=== PATIENT | male | born 1985 | race Caucasian/White ===

== ENCOUNTER 2017-03-05 08:42 | Emergency (ER) | payer SELFPAY ==
[2017-03-05 08:54] VITALS: TEMP 98.5; BMI 24.5
[2017-03-05] MEDS ORDERED: Sodium Chloride 0.9% 1,000 ML IV STA (09:09)
--- NOTE | 2017-03-05 09:13 | ED PDOC ---
Arrival/HPI - General Chief Complaint: Back Pain Time Seen by Provider: 03/05/17 09:01 Historian: Patient - History of Present Illness Narrative History of Present Illness (Text): 03/05/17 09:10 Matthew Ornelas is a 32 year old male, with a history of kidney stones, presents to the emergency department complaining of sharp right flank pain since yesterday. States symptoms are similar to previous episode of renal colic. Denies any hematuria. Deneis fever, chills, headache, dizziness, nausea, vomiting, diarrhea, or any other complaints at this time. 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 absent: Fatigue, Fevers Respiratory: Normal. absent: SOB, Cough Musculoskeletal: Back Pain (right flank pain ) Neurological: Normal. absent: Headache, Dizziness Psychiatric: Normal Physical Exam Vital Signs Reviewed: Yes Vital Signs Temp Pulse Resp BP Pulse Ox 03/05/17 11:00 86 17 120/78 100 03/05/17 10:16 69 18 115/81 99 03/05/17 08:52 98.5 F 80 16 129/95 H 98 Temperature: Afebrile Blood Pressure: Normal Pulse: Regular Respiratory Rate: Normal Appearance: Positive for: Well-Appearing, Non-Toxic, Comfortable Pain Distress: Mild Mental Status: Positive for: Alert and Oriented X 3 - Systems Exam Head: Present: Atraumatic, Normocephalic Pupils: Present: PERRL Conjunctiva: Present: Normal Mouth: Present: Moist Mucous Membranes Respiratory/Chest: Present: Clear to Auscultation, Good Air Exchange. No: Respiratory Distress, Accessory Muscle Use Cardiovascular: Present: Regular Rate and Rhythm, Normal S1, S2. No: Murmurs Abdomen: Present: Normal Bowel Sounds. No: Tenderness, Distention, Peritoneal Signs Back: Present: CVA Tenderness (right cva tenderness ) Upper Extremity: Present: Normal Inspection. No: Cyanosis, Edema Lower Extremity: Present: Normal Inspection. No: Edema Neurological: Present: GCS=15, CN II-XII Intact, Speech Normal Skin: Present: Warm, Dry, Normal Color. No: Rashes Psychiatric: Present: Alert, Oriented x 3, Normal Insight, Normal Concentration Medical Decision Making ED Course and Treatment: 03/05/17 09:14 Impression: A 32 year old male who presents to the emergency department complaining of right flank pain Plan: -- CT abdomen pelvis -- Labs -- Toradol -- IV fluids -- Urinalysis -- Reassess and disposition Progress Notes: 03/05/17 10:37 CT abdomen pelvis reviewed: IMPRESSION: Mild right hydronephrosis due to 4.5 x 5 calculus at the right the UP junction. Bilateral nonobstructing renal calculi. The largest calculus seen at the upper pole left kidney measures 4 x 4 millimeter. Otherwise no evidence of acute pathology in the abdomen and pelvis. Mild hepatomegaly and [id number] steatosis noted. 03/05/17 10:37 On reevaluation patient states pain has resolved post treatment. 03/05/17 10:41 Patient with enal calculi on CT scan. Stable for discharge. no e/o of infection , pain controled. advised pt that chance stone will not pass, will need urology eval if perisstent symptoms. return precautions to er advise. Advised to follow up with urologist and PMD within few days, and present to emergency department for new/worsening symptoms. 03/05/17 14:04 - Lab Interpretations Lab Results: 03/05/17 09:30 03/05/17 09:30 Lab Results 03/05/17 09:30: Sodium 141, Potassium 3.9, Chloride 100, Carbon Dioxide 27, Anion Gap 18, BUN 13, Creatinine 1.1, Est GFR ( Amer) > 60, Est GFR (Non- Af Amer) > 60, Random Glucose 105, Calcium 9.7, Total Bilirubin 1.0, AST 45, ALT 91 H, Alkaline Phosphatase 75, Total Protein 8.8 H, Albumin 5.2 H, Globulin 3.6, Albumin/Globulin Ratio 1.4, Lipase 117 03/05/17 09:30: Urine Color Yellow, Urine Appearance Sl cloudy, Urine pH 6.0, Ur Specific [place] 1.020, Urine Protein Trace H, Urine Glucose (UA) Negative, Urine Ketones Negative, Urine Blood Large H, Urine Nitrate Negative, Urine Bilirubin Negative, Urine Urobilinogen 0.2, Ur Leukocyte Esterase Negative, Urine RBC 25 - 30, Urine WBC Negative, Urine Bacteria Trace 03/05/17 09:30: PT 11.1, INR 1.03, APTT 26.5 03/05/17 09:30: WBC 7.5, RBC 5.42, Hgb 16.6, Hct 46.6, MCV 86.0, MCH 30.6, MCHC 35.6, RDW 12.5, Plt Count 202, MPV 10.8, Gran % 71.0 H, Lymph % (Auto) 22.6, Fisher % (Auto) 5.9, Eos % (Auto) 0.4 L, Baso % (Auto) 0.1, Gran # 5.32, Lymph # 1.7, Fisher # 0.4, Eos # 0.0, Baso # 0.01 - RAD Interpretation Radiology Orders: 03/05/17 09:09 ABD & PELVIS W/O PO OR IV CONT [CT] Stat - Medication Orders Current Medication Orders: Discontinued Medications Sodium Chloride (Sodium Chloride 0.9%) 1,000 mls @ 1,000 mls/hr IV .Q1H STA Stop: 03/05/17 10:08 Last Admin: 03/05/17 09:28 Dose: 1,000 mls/hr Ketorolac Tromethamine (Toradol) 30 mg IVP STAT STA Stop: 03/05/17 09:10 Last Admin: 03/05/17 09:28 Dose: 30 mg - Scribe Statement The provider has reviewed the documentation as recorded by the Demario Isabel Provider Attestation: Provider Scribe Attestation: All medical record entries made by the Demario were at my direction and personally dictated by me. I have reviewed the chart and agree that the record accurately reflects my personal performance of the history, physical exam, medical decision making, and the department course for this patient. I have also personally directed, reviewed, and agree with the discharge instructions and disposition. Disposition/Present on Arrival - Present on Arrival Any Indicators Present on Arrival: No History of DVT/PE: No History of Uncontrolled Diabetes: No Urinary Catheter: No History of Decub. Ulcer: No History Surgical Site Infection Following: None - Disposition Have Diagnosis and Disposition been Completed?: Yes Diagnosis: Kidney stone Disposition: HOME/ ROUTINE Disposition Time: 11:00 Condition: STABLE Discharge Instructions (ExitCare): Kidney Stones (ED) Additional Instructions: please follow up with urologist. return to er with worsening symptoms or concerns. Prescriptions: Ibuprofen [Motrin Tab] 600 mg PO Q6 PRN #20 tab PRN Reason: Pain, Mild (1-3) oxyCODONE/Acetaminophen [Percocet 5/325 mg Tab] 1 ea PO Q6 PRN #10 tab PRN Reason: Pain, Severe (8-10) Tamsulosin [Flomax] 0.4 mg PO DAILY #10 cap Referrals: Dominick Cherry MD [Staff Provider] - Follow up with primary PCP,NO [Primary Care Provider] - Follow up with primary Forms: [employer] (Kiswahili)
[2017-03-05 09:40] LABS: ADD MANUAL DIFF? NO
[2017-03-05 09:43] LABS: URINE BILIRUBIN NEGATIVE (NEGATIVE); URINE BLOOD LARGE (NEGATIVE); URINE GLUCOSE (UA) NEGATIVE (NEGATIVE); URINE KETONE NEGATIVE (NEGATIVE); URINE LEUKOCYTE ESTERASE NEGATIVE Leu/uL (NEGATIVE); URINE PROTEIN TRACE mg/dL (<30 mg/dL); URINE UROBILINOGEN 0.2 E.U./dL (<1 E.U./dL)
[2017-03-05 09:44] LABS: BASO # 0.01 K/mm3 (0.0-2.0); BASO % 0.1 % (0.0-3.0); EOS % 0.4 % (1.5-5.0); GRAN # 5.32 (1.4-6.5); HEMATOCRIT 46.6 % (42.0-52.0); LYMPH # 1.7 (1.2-3.4); LYMPH % 22.6 % (22.0-35.0); MEAN CORPUSCULAR HEMOGLOBIN 30.6 pg (25.0-35.0); MEAN CORPUSCULAR HGB CONC 35.6 g/dl (31.0-37.0); MEAN PLATELET VOLUME 10.8 fl (7.0-11.0); MONO # 0.4 (0.1-0.6); MONO % 5.9 % (1.0-6.0); PLATELET COUNT 202 10^3/uL (120.0-450.0); RED CELL DISTRIBUTION WIDTH 12.5 % (11.5-14.5); WHITE BLOOD COUNT 7.5 10^3/ul (4.5-11.0)
[2017-03-05 09:54] LABS: URINE COLOR YELLOW (YELLOW)
[2017-03-05 09:55] LABS: URINE APPEARANCE SL CLOUDY (CLEAR); URINE BACTERIA TRACE (NEG); URINE RBC 25 - 30 /hpf (0-2); URINE WBC NEGATIVE /hpf (0-6)
[2017-03-05 09:57] LABS: ALB/GLOB RATIO 1.4 (1.1-1.8); ALKALINE PHOSPHATASE 75 U/L (38-133); ALT/SGPT 91 U/L (7-56); AST/SGOT 45 U/L (15-59); BLOOD UREA NITROGEN 13 mg/dL (7-21); CALCIUM 9.7 mg/dL (8.4-10.5); CARBON DIOXIDE 27 mmol/L (21-33); CHLORIDE 100 mmol/L (98-107); GFR AFRICAN-AMERICAN > 60; GLUCOSE,RANDOM 105 mg/dL (70-110); INR 1.03 (0.93-1.08); LIPASE 117 U/L (23-300); PARTIAL THROMBOPLASTIN TIME 26.5 Seconds (23.7-30.8); POTASSIUM 3.9 mmol/L (3.6-5.0); SODIUM 141 mmol/L (132-148); TOTAL PROTEIN 8.8 g/dL (5.8-8.3)
--- NOTE | 2017-03-05 10:32 | CT ---
PROCEDURE: CT Abdomen and Pelvis without intravenous contrast HISTORY: right flank pain h/o of kidney stone COMPARISON: None. TECHNIQUE: Axial and reformatted coronal and sagittal CT images of the abdomen and pelvis were obtained without IV or oral contrast administration.. Contrast Dose: 0 Radiation dose: Total exam DLP = 734.14 mGy-cm. This CT exam was performed using one or more of the following dose reduction techniques: Automated exposure control, adjustment of the mA and/or kV according to patient size, and/or use of iterative reconstruction technique. FINDINGS: LOWER THORAX: Unremarkable. LIVER: Mild hepatomegaly and findings suggestive of moderate steatosis. GALLBLADDER AND BILE DUCTS: Unremarkable. PANCREAS: Unremarkable. No gross lesion or ductal dilatation. SPLEEN: Unremarkable. ADRENALS: Unremarkable. No mass. KIDNEYS AND URETERS: There is mild right hydronephrosis due to 4.5 millimeter calculus at the right UP junction. There are bilateral nonobstructing renal calculi. The largest calculus in the left kidney seen at the upper pole and measures approximately 4 millimeter. No evidence of left hydronephrosis or hydroureter. VASCULATURE: Unremarkable. No aortic aneurysm. BOWEL: Unremarkable. No obstruction. No gross mural thickening. APPENDIX: Unremarkable. Normal appendix. PERITONEUM: Unremarkable. No free fluid. No free air. LYMPH NODES: Unremarkable. No enlarged lymph nodes. BLADDER: Unremarkable. REPRODUCTIVE: Unremarkable. BONES: No acute fracture. OTHER FINDINGS: None. IMPRESSION: Mild right hydronephrosis due to 4.5 x 5 calculus at the right the UP junction. Bilateral nonobstructing renal calculi. The largest calculus seen at the upper pole left kidney measures 4 x 4 millimeter. Otherwise no evidence of acute pathology in the abdomen and pelvis. Mild hepatomegaly and [id number] steatosis noted.
[2017-03-05 11:01] VITALS: BP 120/78; PULSE 86; RESP 17; O2SAT 100
== END 2017-03-05 11:00 | disposition home or self-care (01) ==
LOC: ED 08:42
DX: N20.0 Calculus of kidney (principal)
CPT/HCPCS: 74176; 80053; 81001; 83690; 85025; 85610; 85730; 96361; 96374; 99285; J1885; J7040